=== PATIENT | female | born 1990 | race Caucasian/White ===

== ENCOUNTER 2020-12-15 20:32 | Emergency (ER) | payer BC ==
[~2020-12-15] VITALS: Ht 170.2 cm; Wt 59.9 kg
[2020-12-15 20:39] VITALS: BP_SYST 154
[2020-12-15] MEDS ORDERED: LIDOCAINE 1%, 20 ML MDV 20 ML ONE (20:59)
[2020-12-15] MEDS ORDERED: LIDOCAINE 1% 10 MG/ML, 20 ML MDV INJ ONE (21:00)
[2020-12-15] MEDS ORDERED: ACETAMINOPHEN 500 MG TABLET PO ONE (21:15)
[2020-12-15] MEDS ORDERED: DIPH-TET-PERTUS Vaccine 0.5 ML VIAL (ADACEL) I.M. ONE ×2 (21:27→21:30)
[2020-12-15 21:35] VITALS: BP_SYST 126
== END 2020-12-15 21:35 | disposition home or self-care (01) ==
LOC: SED 20:32
DX: S01.01XA Laceration without foreign body of scalp, initial encounter (principal); W10.8XXA Fall (on) (from) other stairs and steps, initial encounter; Y93.89 Activity, other specified; Y92.89 Other specified places as the place of occurrence of the external cause; Y99.8 Other external cause status
CPT/HCPCS: 12001; 90471; 90715; 99283; J2001